=== PATIENT | female | born 1990 | race Two or more races ===

== ENCOUNTER 2025-06-28 19:09 | Emergency (ER) | payer OTHER, MEDICAID ==
[~2025-06-28] VITALS: Ht 157.5 cm; Wt 95.3 kg
[2025-06-28] MEDS ORDERED: ONDANSETRON HCL/PF 4 MG/2 ML VIAL ONE (20:29)
[2025-06-28] MEDS ORDERED: MAG HYDROX/AL HYDROX/SIMETH 30 ML UDC ONE (20:29)
[2025-06-28] MEDS ORDERED: LIDOCAINE VISCOUS 2% UD 15 ML UDC ONE (20:29)
[2025-06-28] MEDS ORDERED: FAMOTIDINE/PF INJ 20 MG/2 ML VIAL IV ONE (20:30)
[2025-06-28] MEDS: ONDANSETRON HCL/PF 4 MG/2 ML VIAL IVP ONE (20:31)
[2025-06-28] MEDS: IV NS 0.9% 1,000 ML BAG IV ONE (20:31)
[2025-06-28] MEDS: FAMOTIDINE/PF INJ 20 MG/2 ML VIAL IV ONE (20:31)
[2025-06-28] MEDS: LIDOCAINE VISCOUS 2% UD 15 ML UDC MM ONE (20:31)
[2025-06-28] MEDS: MAG HYDROX/AL HYDROX/SIMETH 30 ML UDC PO ONE (20:32)
[2025-06-28 20:48] LABS: PLATELET COUNT (AUTO) 421 K/uL (150-450); RED BLOOD CELL COUNT(AUTO) 5.21 MIL/uL (4.0-5.2); RED CELL DISTRIBUTION WIDTH 21.7 % (11.5-15.0); WHITE BLOOD COUNT (AUTO) 10.0 K/uL (4.3-11.0)
[2025-06-28 20:52] LABS: CALCIUM, SERUM 9.0 mg/dL (8.5-10.1); CREATININE 0.9 mg/dL (0.6-1.3); SODIUM SERUM 138.0 mmol/L (136-145); UREA NITROGEN, BLOOD 10.0 mg/dL (7-18)
[2025-06-28 20:59] LABS: ASPARTATE AMINOTRANSFERASE 20.0 U/L (15-37); TOTAL PROTEIN, SERUM 8.1 g/dL (6.4-8.2)
[2025-06-28 21:00] LABS: APPEARANCE,URINE CLEAR (CLEAR); BLOOD, URINE 3+ Ery/uL (NEGATIVE); LEUKOCYTE ESTERASE ,URINE TRACE (NEGATIVE); NITRITE, URINE NEGATIVE (NEGATIVE); UGLUCOSE NEGATIVE (NEGATIVE)
[2025-06-28 21:01] LABS: PREGNANCY TEST URINE QUAL NEGATIVE (NEGATIVE)
[2025-06-28 21:17] LABS: ADD URINE CULTURE YES; SQUAMOUS EPITHELIAL CELL,UR Moderate /HPF (None Seen)
[2025-06-28] MEDS ORDERED: KETOROLAC TROMETHAMINE 15 MG/ML VIAL ONE (21:20)
[2025-06-28] MEDS: KETOROLAC TROMETHAMINE 15 MG/ML VIAL IV ONE (21:21)
[2025-06-28 21:24] LABS: EOSINOPHILS % (MANUAL) 1 % (0-4); LYMPHOCYTES % (MANUAL) 21 % (16-48); MONOCYTES % (MANUAL) 3 % (0-11.0); NEUTROPHILS % (MANUAL) 75 (42-76)
[2025-06-28 21:25] LABS: PLATELET ESTIMATE ADEQUATE
[2025-06-28] MEDS ORDERED: ONDA4TAB5 PO (21:44)
[2025-06-28] MEDS ORDERED: IBUP-1953 PO (21:44)
[2025-06-28] MEDS ORDERED: FAMO20TA80 PO (21:44)
[2025-06-28] MEDS ORDERED: CEPH-570 PO (21:44)
[2025-06-28 22:02] VITALS: BP 122/78; TEMP 98.7; O2SAT 98
== END 2025-06-28 22:02 | disposition home or self-care (01) ==
LOC: ER 19:11
DX: K80.50 Calculus of bile duct without cholangitis or cholecystitis without obstruction (principal); K29.70 Gastritis, unspecified, without bleeding; N39.0 Urinary tract infection, site not specified; E11.9 Type 2 diabetes mellitus without complications
CPT/HCPCS: 99285; 96374; 76700; 96375; 96361; 85025; 80048; 83690; 80076; 84703; 81001; 36415; 85027; 85007; J1885; J1308; J2405; J7030; 87086-TC